=== PATIENT | female | born 1995 | race African-American/Black ===

== ENCOUNTER 2021-02-21 10:49 | Outpatient (CLI) | payer OTHER, SELFPAY ==
[2021-02-21 11:40] LABS: Add Urine Microscopic? YES; Appearance Urine Cloudy (Clear); Bilirubin Urine Negative (Negative); Blood Urine Negative (Negative); Color Urine Yellow (Yellow); Glucose Urine UA Negative (Negative); Ketones Urine Negative (Negative); Leukocyte Esterase Ur Negative LEU/UL (NEGATIVE); Mucus Urine Rare /lpf; Nitrate Urine Negative (Negative); Protein Urine Negative (Negative); RBC Urine 0-2 /hpf (0-2); Specific Grav Ur 1.012 (1.001-1.035); Squamous Epithelial Cell Urine Occasional /hpf (Few); Urobilinogen Urine Negative mg/dL (<2.0); WBC Urine 0-3 /hpf (0-3)
[2021-02-21 11:56] LABS: Basophils Percent Auto 0.2 % (0.2-1.2); Eosinophils Percent Auto 0.3 % (0-4.4); Hematocrit 34.2 % (37.0-47.0); Hemoglobin 10.8 g/dL (12.0-15.0); Immature Granulocyte Absolute 0.02 K/mm3 (0.00-0.031); Immature Granulocyte Percent A 0.3 % (0-0.5); Lymphocytes Absolute Auto 1.91 K/mm3 (0.9-3.2); Mean Corpuscular HGB Conc 31.6 g/dl (32-36); Mean Corpuscular Hemoglobin 21.9 pg (26-34); Mean Corpuscular Volume 69.2 fl (80-100); Mean Platelet Volume 10.5 fl (7.4-10.4); Monocytes Absolute Auto 0.8 K/mm3 (0.1-0.6); Monocytes Percent Auto 12.6 % (2.6-8.5); Neutrophils Absolute Auto 3.6 K/mm3 (1.3-6.7); Neutrophils Percent Auto 56.6 % (45.5-73.1); Platelet Count Result 331 k/mm3 (150-375); Red Blood Count 4.94 M/mm3 (4.2-5.4); Red Cell Distribution Width 15.7 % (11.5-14.5); White Blood Count 6.4 K/mm3 (4.5-10.0)
[2021-02-21 12:14] LABS: Vitamin D 25 Hydroxy 46.2 ng/mL
[2021-02-21 12:33] LABS: Hepatitis B Surface Antigen Negative (Negative); Rubella IgG Antibody 37.8 IU/ML
[2021-02-21 12:37] LABS: Rapid Plasma Reagin Non-Reactive (NonReactive)
[2021-02-21 12:38] LABS: HIV 1/2 Ab P24 Ag Result Negative (Negative)
[2021-02-21 12:44] LABS: Hepatitis C Virus Antibody Negative (Negative)
[2021-02-25 15:37] LABS: Hematocrit 35.9 % (35.0-45.0); Hemoglobin 10.8 g/dL (11.7-15.5); MCH 22.2 pg (27.0-33.0); MCV 73.7 fL (80.0-100.0); Red Blood Cell Count 4.87 Mill/uL (3.80-5.10)
[2021-03-03 07:35] LABS: CF Result NEGATIVE (NEGATIVE); Ethnicity NG
== END 2021-02-21 10:50 | disposition home or self-care (01) ==
LOC: ANHLAB 10:52
PROVIDERS: PCP Student in an Organized Health Care Education/Training Program; Visit Provider Student in an Organized Health Care Education/Training Program
DX: Z34.90 Encounter for supervision of normal pregnancy, unspecified, unspecified trimester (principal); Z3A.00 Weeks of gestation of pregnancy not specified
CPT/HCPCS: 36415; 81001; 81220; 81243; 82306; 83021; 84443; 85025; 86592; 86703; 86762; 86787; 86803; 86850; 86900; 86901; 87086; 87088; 87340; G0432

== ENCOUNTER 2021-02-28 10:53 | Outpatient (CLI) | payer OTHER, SELFPAY ==
--- NOTE | ~2021-02-28 | US_ITS ---
EXAMINATION: US OB follow up DATE: 02/28/2021 11:34 INDICATION: Dating and viability assessment during second trimester TECHNIQUE: Real-time ultrasound of the pelvis was performed. The interpreting radiologist was not pre sent for the study. COMPARISON: None. FINDINGS: There is a single living fetus in breech presentation. The placenta is posterior and 3.8 cm from the internal cervical os. cardiac activity and movement are noted. heart rate is 155 beats per minute (bpm). A 2.0 x 1.7 cm hypoechoic area at the uterine fundus has the appearan ce of a subserosal fibroid. The right ovary measures 2.8 x 1.9 x 2.0 cm. The left ovary measures 5.4 x 2.8 x 3.0 cm and contains a 2.9 cm cyst. The amniotic fluid index is subjectively normal. The following biometric data were obtained: Biparietal diameter (BPD): 2.7 cm; head circumference (HC): 10.6 cm; abdominal circumference (AC): 9. 2 cm; femur length (FL): 1.7 cm. These measurements are concordant. Estimated weight is 117 g +/- 17 g, which correlates with the 18th percentile when 08/18/2021 is used as estimated date of delivery. As single measurements, these parameters are each equal to the following estimated gestational ages w ith ranges of +/- 2 standard deviations: BPD: 15 weeks 0 days +/- 1 weeks 1 days. HC: 15 weeks 0 days +/- 1 weeks 1 days. AC: 15 weeks 2 days +/- 1 weeks 5 days. FL: 15 weeks 1 days +/- 1 weeks 3 days. estimated gestational age based solely on measurements from this exam is 15 weeks 1 days +/- 1 weeks 0 days. IMPRESSION: 1. Single living fetus in breech presentation. 2. Estimated weight is 117 g +/- 17 g, which correlates with the 18th percentile when 08/18/2021 is used as estimated date of delivery. 3. Estimated delivery date based solely on this examination is 08/21/2021. Reviewed, dictated and finalized at location A. [employer] IMPRESSION: 1. Single living fetus in breech presentation. 2. Estimated weight is 117 g +/- 17 g, which correlates with the 18th per centile when 08/18/2021 is used as estimated date of delivery. 3. Estimated delivery date based solely on this examination is 08/21/2021.
== END 2021-02-28 10:54 | disposition home or self-care (01) ==
LOC: ANHIMG 10:58
PROVIDERS: PCP Student in an Organized Health Care Education/Training Program; Visit Provider Student in an Organized Health Care Education/Training Program
DX: Z34.92 Encounter for supervision of normal pregnancy, unspecified, second trimester (principal); Z3A.15 15 weeks gestation of pregnancy
CPT/HCPCS: 76816

== ENCOUNTER 2021-05-10 10:37 | Outpatient (CLI) | payer OTHER, SELFPAY ==
[2021-05-10 12:42] LABS: Basophils Percent Auto 0.2 % (0.2-1.2); Eosinophils Absolute Auto 0.1 K/mm3 (0-0.3); Eosinophils Percent Auto 0.8 % (0-4.4); Hematocrit 33.1 % (37.0-47.0); Hemoglobin 10.5 g/dL (12.0-15.0); Immature Granulocyte Absolute 0.02 K/mm3 (0.00-0.031); Immature Granulocyte Percent A 0.3 % (0-0.5); Lymphocytes Absolute Auto 1.65 K/mm3 (0.9-3.2); Lymphocytes Percent Auto 26.5 % (18.3-44.2); Mean Corpuscular HGB Conc 31.7 g/dl (32-36); Mean Corpuscular Hemoglobin 22.6 pg (26-34); Mean Corpuscular Volume 71.3 fl (80-100); Mean Platelet Volume 10.1 fl (7.4-10.4); Monocytes Absolute Auto 0.6 K/mm3 (0.1-0.6); Monocytes Percent Auto 9.6 % (2.6-8.5); Neutrophils Absolute Auto 3.9 K/mm3 (1.3-6.7); Neutrophils Percent Auto 62.6 % (45.5-73.1); Platelet Count Result 299 k/mm3 (150-375); Red Blood Count 4.64 M/mm3 (4.2-5.4); White Blood Count 6.2 K/mm3 (4.5-10.0)
[2021-05-10 12:57] LABS: Glucose 1 Hour PP 50gm Dose 118 mg/dL
== END 2021-05-10 10:38 | disposition home or self-care (01) ==
PROVIDERS: PCP Student in an Organized Health Care Education/Training Program; Visit Provider Student in an Organized Health Care Education/Training Program
DX: Z34.90 Encounter for supervision of normal pregnancy, unspecified, unspecified trimester (principal)
CPT/HCPCS: 36415; 82947; 85025

== ENCOUNTER 2021-06-26 12:21 | Outpatient (CLI) | payer OTHER, SELFPAY ==
[2021-06-26 12:36] LABS: Eosinophils Percent Auto 0.5 % (0-4.4); Hematocrit 34.9 % (37.0-47.0); Hemoglobin 10.6 g/dL (12.0-15.0); Immature Granulocyte Absolute 0.01 K/mm3 (0.00-0.031); Immature Granulocyte Percent A 0.2 % (0-0.5); Lymphocytes Absolute Auto 1.65 K/mm3 (0.9-3.2); Lymphocytes Percent Auto 28.5 % (18.3-44.2); Mean Corpuscular HGB Conc 30.4 g/dl (32-36); Mean Corpuscular Hemoglobin 22.1 pg (26-34); Mean Corpuscular Volume 72.9 fl (80-100); Mean Platelet Volume 9.8 fl (7.4-10.4); Monocytes Absolute Auto 0.7 K/mm3 (0.1-0.6); Monocytes Percent Auto 12.6 % (2.6-8.5); Neutrophils Absolute Auto 3.4 K/mm3 (1.3-6.7); Neutrophils Percent Auto 58.2 % (45.5-73.1); Platelet Count Result 279 k/mm3 (150-375); Red Blood Count 4.79 M/mm3 (4.2-5.4); Red Cell Distribution Width 15.6 % (11.5-14.5); White Blood Count 5.8 K/mm3 (4.5-10.0)
[2021-06-26 14:52] LABS: HIV 1/2 Ab P24 Ag Result Negative (Negative)
[2021-06-27 05:48] LABS: Rapid Plasma Reagin Non-Reactive (NonReactive)
== END 2021-06-26 12:22 | disposition home or self-care (01) ==
LOC: ANHLAB 12:22
PROVIDERS: PCP Student in an Organized Health Care Education/Training Program; Visit Provider Student in an Organized Health Care Education/Training Program
DX: Z34.03 Encounter for supervision of normal first pregnancy, third trimester (principal); Z3A.00 Weeks of gestation of pregnancy not specified
CPT/HCPCS: 36415; 85025; 86592; 86703; G0432

== ENCOUNTER 2021-07-15 11:13 | Outpatient (CLI) | payer OTHER, SELFPAY ==
[2021-07-15 12:00] LABS: Basophils Percent Auto 0.2 % (0.2-1.2); Eosinophils Percent Auto 0.5 % (0-4.4); Hematocrit 34.3 % (37.0-47.0); Hemoglobin 10.5 g/dL (12.0-15.0); Immature Granulocyte Absolute 0.01 K/mm3 (0.00-0.031); Immature Granulocyte Percent A 0.2 % (0-0.5); Lymphocytes Absolute Auto 1.44 K/mm3 (0.9-3.2); Lymphocytes Percent Auto 26.1 % (18.3-44.2); Mean Corpuscular HGB Conc 30.6 g/dl (32-36); Mean Corpuscular Hemoglobin 22.2 pg (26-34); Mean Corpuscular Volume 72.4 fl (80-100); Mean Platelet Volume 9.5 fl (7.4-10.4); Monocytes Absolute Auto 0.6 K/mm3 (0.1-0.6); Monocytes Percent Auto 11.1 % (2.6-8.5); Neutrophils Absolute Auto 3.4 K/mm3 (1.3-6.7); Neutrophils Percent Auto 61.9 % (45.5-73.1); Platelet Count Result 303 k/mm3 (150-375); Red Blood Count 4.74 M/mm3 (4.2-5.4); Red Cell Distribution Width 15.5 % (11.5-14.5); White Blood Count 5.5 K/mm3 (4.5-10.0)
[2021-07-15 12:03] VITALS: BP 124/76; PULSE 100; PULSE 102; BMI 44.1
[2021-07-15 12:05] LABS: Appearance Urine Clear (Clear); Bilirubin Urine Negative (Negative); Blood Urine Negative (Negative); Color Urine Yellow (Yellow); Glucose Urine UA Negative (Negative); Ketones Urine Negative (Negative); Leukocyte Esterase Ur Negative LEU/UL (Negative); Nitrate Urine Negative (Negative); Protein Urine Negative (Negative); Specific Grav Ur >= 1.030 (1.001-1.035); Urobilinogen Urine 0.2 mg/dL (<2.0)
[2021-07-15 12:10] LABS: Add Urine Microscopic? NO
[2021-07-15 12:11] LABS: Alanine Aminotransferase 15 U/L (4-35); Albumin Level 3.5 g/dL (3.5-5.1); Alkaline Phosphatase 116 U/L (38-126); Anion Gap 7 mmol/L (8-16); Aspartate Amino Transferase 23 U/L (14-36); Bilirubin,Total 0.1 mg/dL (0.2-1.3); Blood Urea Nitrogen 5 mg/dL (7-17); Calcium 9.4 mg/dL (8.4-10.2); Carbon Dioxide 21 mmol/L (22-30); Chloride 106 mmol/L (98-107); Estimated Glomerular Filt Rate > 60; Glucose 119 mg/dL (65-110); Sodium 134 mmol/L (137-145); Uric Acid 4.7 mg/dL (2.5-7.5)
[2021-07-15 12:12] LABS: Creatinine Urine 172.6 mg/dL; Total Protein Urine Random 10 mg/dL; Ur Ttl Prot Creatinine Ratio 0.06 mg/mg (0-0.20)
[2021-07-15 12:13] LABS: Bacteria Urine Trace /hpf; Calcium Oxalate Crystals Urine Present /hpf; Mucus Urine Rare /lpf; Squamous Epithelial Cell Urine Moderate /hpf (Few); WBC Urine 0-3 /hpf
[2021-07-15 12:16] VITALS: BP 118/67; PULSE 101
[2021-07-15 12:31] VITALS: BP 118/61; PULSE 100
--- NOTE | 2021-07-15 12:41 | PC.NURSE ---
Dr. Duran returned call and informed of BP's, lab results, and reactive NST. Orders received for discharge.
== END 2021-07-15 12:50 | disposition home or self-care (01) ==
LOC: ANHOBOP 11:18 → ANHOBPP 11:19
PROVIDERS: PCP Student in an Organized Health Care Education/Training Program; Visit Provider Student in an Organized Health Care Education/Training Program
DX: O13.9 Gestational [pregnancy-induced] hypertension without significant proteinuria, unspecified trimester (principal); Z3A.00 Weeks of gestation of pregnancy not specified
CPT/HCPCS: 36415; 59025; 80053; 81003; 82570; 84156; 84550; 85025; 99199